=== PATIENT | female | born 1995 | race Two or more races ===

== ENCOUNTER 2019-02-11 01:09 | Inpatient (IN) | payer BC ==
[2019-02-11] MEDS ORDERED: PENICILLIN G-K 5 MILLION UNIT VIAL ONE (02:15)
[2019-02-11] MEDS ORDERED: OXYTOCIN 10 UNIT/ML VIAL ONE ×2 (02:35→02:42)
[2019-02-11] MEDS ORDERED: MISOPROSTOL 0.2 MG TABLET ONE ×2 (02:35→02:42)
[2019-02-11] MEDS ORDERED: LIDOCAINE 1% INJ-PF (10 MG/ML) 30 ML SDV ONE ×2 (02:36→02:42)
[2019-02-11] MEDS ORDERED: OXYTOCIN/NORMAL SALINE 0 UNIT/0 ML RTUINJ ONE (02:36)
[2019-02-11] MEDS ORDERED: RINGERS SOLUTION,LACTATED 1,000 ML IV ONE (02:38)
[2019-02-11] MEDS ORDERED: PENICILLIN G POTASSIUM 5,000,000 UNIT in DEXTROSE 5%-WATER 100 ML IV ONE (02:38)
[2019-02-11] MEDS ORDERED: RINGERS SOLUTION,LACTATED 1,000 ML IV PRN (02:38)
[2019-02-11] MEDS ORDERED: OXYTOCIN/NORMAL SALINE 20 UNIT/1,000 ML RTUINJ ONE ×2 (02:42→06:38)
[2019-02-11 02:56] LABS: ABSOLUTE LYMPHOCYTES (AUTO) 1.6 10^3/uL (0.5-4.7); ABSOLUTE MONOCYTES (AUTO) 0.7 10^3/uL (0.1-1.4); ABSOLUTE NEUT (AUTO) 15.4 10^3/uL (1.7-8.2); BASOPHILS % (AUTO) 0.1 % (0-2); EOSINOPHILS % (AUTO) 0.1 % (0-6); HEMOGLOBIN 12.4 g/dL (12.0-15.5); LYMPHOCYTES % (AUTO) 9.1 % (13-45); MEAN CORPUSCULAR HGB CONC 34.4 g/dL (32.0-36.0); MEAN CORPUSCULAR VOLUME 93 fl (80-97); PLATELET COUNT 185 10^3/uL (150-450); RED BLOOD COUNT 3.87 10^6/uL (3.72-5.28); RED CELL DISTRIBUTION WIDTH 13.1 % (11.5-14.0); SEGMENTED NEUTROPHILS % (AUTO) 86.7 % (42-78); TOTAL CELLS COUNTED % (AUTO) 100 %; WHITE BLOOD COUNT 17.8 10^3/uL (4.0-10.5)
--- NOTE | 2019-02-11 02:57 | Admission Physical ---
Datetime Report Generated by CPN: 02/11/2019 02:57 CURRENT ADMISSION Chief Complaint: Uterine Contractions Indication for Induction: Not Applicable Admit Impression : Term, Intrauterine Admit Plan: Admit to Unit; Initiate Labor Protocol OBSTETRICAL HISTORY EDC: 02/21/2019 00:00 : 4 Para: 1 PHYSICAL EXAM General: Normal HEENT: Normal Neurologic: Normal Thyroid: Normal Heart: Normal Lungs: Normal Breast: Deferred Back: Normal Abdomen: Normal Genitourinary Exam: Normal Extremities: Normal DTRs: Normal Pelvic Type: Adequate FETUS A EGA: 38.4 INFORMED CONSENT Signature: with User ID: [email or web address]
[2019-02-11 02:59] LABS: APPEARANCE,URINE SLIGHTLY-CLOUDY; BILIRUBIN,URINE NEGATIVE (NEGATIVE); COLOR,URINE YELLOW; GLUCOSE, URINE 50 mg/dL (NEGATIVE); KETONES,URINE NEGATIVE (NEGATIVE); LEUKOCYTE ESTERASE,URINE NEGATIVE (NEGATIVE); NITRITE,URINE NEGATIVE (NEGATIVE); PROTEIN,URINE NEGATIVE (NEGATIVE); URINE SPECIFIC GRAVITY 1.019; UROBILINOGEN,URINE NEGATIVE mg/dL (<2.0)
[2019-02-11] MEDS ORDERED: PROMETHAZINE HCL 25 MG TABLET PO PRN (03:01)
[2019-02-11] MEDS ORDERED: DIPHENHYDRAMINE HCL 25 MG CAPSULE PO PRN (03:01)
[2019-02-11] MEDS ORDERED: OXYTOCIN/NORMAL SALINE 20 UNIT/1,000 ML RTUINJ IV PRN (03:01)
[2019-02-11] MEDS ORDERED: BENZOCAINE/MENTHOL AEROSOL SPRAY 56 ML TOP PRN (03:01)
[2019-02-11] MEDS ORDERED: PROMETHAZINE HCL 25 MG SUPP.RECT PR PRN (03:01)
[2019-02-11] MEDS ORDERED: MEASLES,MUMPS&RUBELLA VACC/PF 0.5 ML VIAL SUBCUT PRN (03:01)
[2019-02-11] MEDS ORDERED: DIBUCAINE 1% OINTMENT 56 GM TP PRN (03:01)
[2019-02-11] MEDS ORDERED: ZOLPIDEM TARTRATE 5 MG TABLET PO PRN (03:01)
[2019-02-11] MEDS ORDERED: PSEUDOEPHEDRINE HCL 30 MG TABLET PO PRN (03:01)
[2019-02-11] MEDS ORDERED: PROMETHAZINE HCL INJ 25 MG/1 ML VIAL IV PRN (03:01)
[2019-02-11] MEDS ORDERED: GLYCERIN/WITCH HAZEL LEAF 1 EACH MED..WIPE TP PRN (03:01)
[2019-02-11] MEDS ORDERED: NA PHOS,M-B/NA PHOS,DI-BA (ADULT) 133 ML ENEMA PR PRN (03:01)
[2019-02-11] MEDS ORDERED: MAGNESIUM HYDROXIDE SUSP 30 ML UDCUP PO PRN (03:01)
[2019-02-11] MEDS ORDERED: ACETAMINOPHEN WITH CODEINE #3 TABLET PO PRN (03:01)
[2019-02-11] MEDS ORDERED: ACETAMINOPHEN 650 MG SUPP.RECT PR PRN (03:01)
[2019-02-11] MEDS ORDERED: DIPH/PERTUSS(ACELL)/TETANUS VAC/PF 0.5 ML SYR (>=10YO) IM PRN (03:01)
[2019-02-11 03:13] LABS: URINE AMPHETAMINES SCREEN NEGATIVE; URINE BARBITURATES SCREEN NEGATIVE; URINE BENZODIAZEPINES SCREEN NEGATIVE; URINE COCAINE SCREEN NEGATIVE; URINE MARIJUANA (THC) SCREEN NEGATIVE; URINE METHADONE SCREEN NEGATIVE; URINE PHENCYCLIDINE SCREEN NEGATIVE
[2019-02-11] MEDS ORDERED: MIDAZOLAM 2 MG/2 ML INJ ONE (04:01)
[2019-02-11] MEDS ORDERED: DEXAMETHASONE SOD PHOSPHATE INJ 4 MG/1 ML VIAL ONE (04:01)
[2019-02-11] MEDS ORDERED: PROPOFOL INJ 200 MG/20 ML VIAL IV ONE (04:01)
[2019-02-11] MEDS ORDERED: ONDANSETRON HCL INJ/PF 4 MG/2 ML SDV ONE (04:01)
[2019-02-11] MEDS ORDERED: FENTANYL CITRATE INJ/PF 100 MCG/2 ML AMPUL ONE (04:01)
[2019-02-11] MEDS ORDERED: PENICILLIN G POTASSIUM 2,500,000 UNIT in DEXTROSE 5%-WATER 50 ML IV SCH (06:38)
[2019-02-11] MEDS: IBUPROFEN 800 MG TABLET PO SCH ×4 (09:44→22:27)
[2019-02-11] MEDS: PRENATAL VITAMIN W DHA CAPSULE PO SCH (09:48)
[2019-02-11] MEDS: DOCUSATE SODIUM 100 MG CAPSULE PO SCH ×2 (09:48→17:54)
[2019-02-11] MEDS: FAMOTIDINE 20 MG TABLET PO SCH ×2 (09:48→22:27)
[2019-02-11] MEDS: FERROUS SULFATE 325 MG TABLET PO SCH ×2 (09:48→17:54)
[2019-02-11] MEDS: SENNOSIDES/DOCUSATE 8.6-50 MG 1 EACH TABLET PO SCH (09:48)
--- NOTE | 2019-02-11 11:03 | Delivery Summary ---
Del Sum A-C Datetime Report Generated by CPN: 02/11/2019 11:03 DELIVERY PERSONNEL DELIVERY PERSONNEL: [id number] Delivery Doctor:: Chris Rocha MD Labor and Delivery Nurse:: Mary Galvez, RNC Commanding Officer Traffic Division/CHURCH SUPERVISOR: Umm Ross, ST MATERNAL INFORMATION Delivery Anesthesia: None Medications After Delivery: Pitocin Drip 20 Units/1000ml NSS Estimated Blood Loss (ml): 450 Delivery QBL: 100 Maternal Complications: Precipitous Labor (<3hrs) LABOR SUMMARY EDC: 02/21/2019 00:00 No. Babies in Womb: 1 Attempted: No Labor Anesthesia: None LABOR INFORMATION Reason for Induction: Not Applicable Onset of Labor: 02/10/2019 22:00 Complete Dilatation: 02/11/2019 02:41 Oxytocin: N/A Group B Beta Strep: Positive Antibiotics # of Doses: 1 Antibiotics Time of Last Dose: 0200 Name of Antibiotic Given: penicillin Steroids Given: None Reason Steroids Not Administered: Not Applicable MEMBRANES Membranes Rupture Method: Spontaneous Rupture of Membranes: 02/11/2019 02:41 Length of Rupture (hr): 0.00 Amniotic Fluid Color: Clear Amniotic Fluid Amount: None Amniotic Fluid Odor: Normal STAGES OF LABOR Stage 1 hr: 4 Stage 1 min: 41 Stage 2 hr: 0 Stage 2 min: 0 Stage 3 hr: 1 Stage 3 min: 24 Total Time in Labor hr: 6 Total Time in Labor min: 5 VAGINAL DELIVERY Episiotomy: None Laceration #1: None Laceration Repair: Not Applicable Sponge Count Correct: N/A BABY A INFORMATION Delivery Date/Time: 02/11/2019 02:41 Method of Delivery: Vaginal Born in Route : No : N/A Forceps: N/A Vacuum Extraction: N/A Shoulder Dystocia : No PRESENTATION/POSITION BABY A Presentation: Cephalic Cephalic Presentation: Vertex Vertex Position: Left Occipital Anterior Breech Presentation: N/A PLACENTA INFORMATION BABY A Placenta Delivery Time : 02/11/2019 04:05 Placenta Method of Delivery: Spontaneous Placenta Status: Delivered SCORES BABY A Heart Rate 1 min: >100 bpm Resp Effort 1 min: Good Cry Reflex Irritability 1 min: Cough or Sneeze or Pulls Away Muscle Tone 1 min: Active Motion Color 1 min: Body [place], Extremities Blue Resuscitation Effort 1 min: Tactile Stimulation SCORE 1 MIN: 9 Heart Rate 5 min: >100 bpm Resp Effort 5 min: Good Cry Reflex Irritability 5 min: Cough or Sneeze or Pulls Away Muscle Tone 5 min: Active Motion Color 5 min: Body [place], Extremities Blue SCORE 5 MIN: 9 INFORMATION BABY A Gestational Age at Delivery: 38.4 Gestational Status: Early Term- 37- 38.6 Weeks Infant Outcome : Liveborn Condition : Stable Sex: Female IDENTIFICATION BABY A Infant Verification Date/Time: 02/11/2019 02:50 ID Band Number: [id number] Mother's Name Verified: Yes RN Verifying Infant: Thien Galvez RN WEIGHT/LENGTH BABY A Birthweight (gm): 3280 Infant Weight (lb): 7 Weight (oz): 4 Infant Length (in): 19.00 Infant Length (cm): 48.26 CORD INFORMATION BABY A No. Cord Vessels: 3 Nuchal Cord : N/A Cord Blood Taken: Yes-For Storage (Mom's Blood type +) Suction: None ASSESSMENT BABY A Infant Complications: None Physical Findings at Delivery: Within Normal Limits Respirations: Appears Normal Variety Lathe Operator/ALS Called : No Infant Care By: D Leonor RN Transferred To: [facility] BABY B INFORMATION : N/A SIGNATURES Signature: with User ID: [email or web address]
[2019-02-12] MEDS: IBUPROFEN 800 MG TABLET PO SCH ×3 (06:57→22:58)
[2019-02-12 07:55] LABS: HEMATOCRIT 33.5 % (36.0-47.0); HEMOGLOBIN 11.2 g/dL (12.0-15.5); MEAN CORPUSCULAR HEMOGLOBIN 32.1 pg (27.0-33.4); MEAN CORPUSCULAR HGB CONC 33.6 g/dL (32.0-36.0); MEAN CORPUSCULAR VOLUME 96 fl (80-97); PLATELET COUNT 163 10^3/uL (150-450); RED CELL DISTRIBUTION WIDTH 13.3 % (11.5-14.0); WHITE BLOOD COUNT 15.5 10^3/uL (4.0-10.5)
[2019-02-12] MEDS: FAMOTIDINE 20 MG TABLET PO SCH ×2 (09:55→22:58)
[2019-02-12] MEDS: DOCUSATE SODIUM 100 MG CAPSULE PO SCH ×2 (09:55→18:46)
[2019-02-12] MEDS: SENNOSIDES/DOCUSATE 8.6-50 MG 1 EACH TABLET PO SCH (09:55)
[2019-02-12] MEDS: PRENATAL VITAMIN W DHA CAPSULE PO SCH (09:56)
[2019-02-12] MEDS: FERROUS SULFATE 325 MG TABLET PO SCH ×2 (09:57→18:46)
--- NOTE | 2019-02-12 11:51 | PDOC PROGRESS REPORT ---
Subjective-OB Progress Note for:: 02/12/19 Subjective: Pt doing well, no concerns. She reports light bleeding, reg diet and voiding without difficulty. Unable to connect to K[employer], kidthing translate used for communication. [place]an is limited but she understands some. Physical Exam (OB) Vital Signs: Temp Pulse Resp BP Pulse Ox 98.2 F 72 16 105/58 L 98 02/12/19 07:43 02/12/19 07:43 02/12/19 07:43 02/12/19 07:43 02/12/19 07:43 Intake & Output 02/11/19 02/12/19 02/13/19 06:59 06:59 06:59 Intake Total 500 Balance 500 Weight 72.575 kg - PIH/Pre-Eclampsia Headache: Absent Epigastric Pain: No Visual Changes: No - Lochia Lochia Amount: Small 10-25 ml Lochia Color: Rubra/Red - Abdomen Description: Soft, Round Hernia Present: No Fundal Description: Firm, Midline Fundal Height: u/u - u/2 Objective-Diagnostic Laboratory: 02/12/19 07:37 02/12/19 07:37 WBC 15.5 H RBC 3.50 L Hgb 11.2 L Hct 33.5 L MCV 96 MCH 32.1 MCHC 33.6 RDW 13.3 Plt Count 163 Assessment and Plan(PN) - Assessment and Plan (1) Vaginal delivery Is this a current diagnosis for this admission?: Yes - Time Spent with Patient Time with patient: Less than 15 minutes Medications reviewed and adjusted accordingly: Yes - Disposition Anticipated Discharge: Home Within: within 24 hours
[2019-02-13] MEDS: IBUPROFEN 800 MG TABLET PO SCH (05:57)
[2019-02-13 08:53] VITALS: BP 103/55
[2019-02-13] MEDS: DOCUSATE SODIUM 100 MG CAPSULE PO SCH (11:55)
[2019-02-13] MEDS: PRENATAL VITAMIN W DHA CAPSULE PO SCH (11:55)
[2019-02-13] MEDS: SENNOSIDES/DOCUSATE 8.6-50 MG 1 EACH TABLET PO SCH (11:55)
[2019-02-13] MEDS: FAMOTIDINE 20 MG TABLET PO SCH (11:55)
[2019-02-13] MEDS: FERROUS SULFATE 325 MG TABLET PO SCH (11:55)
--- NOTE | 2019-02-13 12:45 | PDOC DISCHARGE SUMMARY ---
Impression - Admit/DC Date/PCP Admission Date/Primary Care Provider: 02/11/19 02:26 REMY DICKERSON MD Discharge Date: 02/13/19 - Discharge Diagnosis (1) Vaginal delivery Is this a current diagnosis for this admission?: Yes - Additional Information Resuscitation Status: Full Code Discharge Diet: Regular Discharge Activity: Balance Activity w/Rest, Pelvic Rest Referrals: REMY DICKERSON MD [Primary Care Provider] - Prescriptions: Ibuprofen [Motrin 800 mg Tablet] 800 mg PO Q8HP PRN #60 tablet PRN Reason: For Pain Home Medications: Ibuprofen [Motrin 800 mg Tablet] 800 mg PO Q8HP PRN #60 tablet 02/13/19 Results Laboratory Results: WBC 15.5 10^3/uL (4.0-10.5) H 02/12/19 07:37 RBC 3.50 10^6/uL (3.72-5.28) L 02/12/19 07:37 Hgb 11.2 g/dL (12.0-15.5) L 02/12/19 07:37 Hct 33.5 % (36.0-47.0) L 02/12/19 07:37 MCV 96 fl (80-97) 02/12/19 07:37 MCH 32.1 pg (27.0-33.4) 02/12/19 07:37 MCHC 33.6 g/dL (32.0-36.0) 02/12/19 07:37 RDW 13.3 % (11.5-14.0) 02/12/19 07:37 Plt Count 163 10^3/uL (150-450) 02/12/19 07:37 Lymph % (Auto) 9.1 % (13-45) L 02/11/19 02:40 [place] % (Auto) 4.0 % (3-13) 02/11/19 02:40 Eos % (Auto) 0.1 % (0-6) 02/11/19 02:40 Baso % (Auto) 0.1 % (0-2) 02/11/19 02:40 Absolute Neuts (auto) 15.4 10^3/uL (1.7-8.2) H 02/11/19 02:40 Absolute Lymphs (auto) 1.6 10^3/uL (0.5-4.7) 02/11/19 02:40 Absolute Monos (auto) 0.7 10^3/uL (0.1-1.4) 02/11/19 02:40 Absolute Eos (auto) 0.0 10^3/uL (0.0-0.6) 02/11/19 02:40 Absolute Basos (auto) 0.0 10^3/uL (0.0-0.2) 02/11/19 02:40 Seg Neutrophils % 86.7 % (42-78) H 02/11/19 02:40 Urine Color YELLOW 02/11/19 01:50 Urine Appearance SLIGHTLY-CLOUDY 02/11/19 01:50 Urine pH 6.0 (5.0-9.0) 02/11/19 01:50 Ur Specific [place] 1.019 02/11/19 01:50 Urine Protein NEGATIVE mg/dL (NEGATIVE) 02/11/19 01:50 Urine Glucose (UA) 50 mg/dL (NEGATIVE) H 02/11/19 01:50 Urine Ketones NEGATIVE mg/dL (NEGATIVE) 02/11/19 01:50 Urine Blood NEGATIVE (NEGATIVE) 02/11/19 01:50 Urine Nitrite NEGATIVE (NEGATIVE) 02/11/19 01:50 Urine Bilirubin NEGATIVE (NEGATIVE) 02/11/19 01:50 Urine Urobilinogen NEGATIVE mg/dL (<2.0) 02/11/19 01:50 Ur Leukocyte Esterase NEGATIVE (NEGATIVE) 02/11/19 01:50 Urine Ascorbic Acid 20 (NEGATIVE) H 02/11/19 01:50 Urine Opiates Screen NEGATIVE 02/11/19 01:50 Urine Methadone Screen NEGATIVE 02/11/19 01:50 Ur Barbiturates Screen NEGATIVE 02/11/19 01:50 Ur Phencyclidine Scrn NEGATIVE 02/11/19 01:50 Ur Amphetamines Screen NEGATIVE 02/11/19 01:50 U Benzodiazepines Scrn NEGATIVE 02/11/19 01:50 Urine Cocaine Screen NEGATIVE 02/11/19 01:50 U Marijuana (THC) Screen NEGATIVE 02/11/19 01:50 RPR NONREACTIVE (NONREACTIVE) 02/11/19 02:40 Blood Type A POSITIVE 02/11/19 02:40 Antibody Screen NEGATIVE 02/11/19 02:40
== END 2019-02-13 14:50 | disposition home or self-care (01) | DRG 807 ==
LOC: LC 01:09 → LR 02:26 → 2S 07:45
PROVIDERS: ADMIT Obstetrics & Gynecology Gynecology; ATTEND Obstetrics & Gynecology Gynecology
PROC: 10E0XZZ Delivery of Products of Conception, External Approach (ICD-10-PCS; principal; 2019-02-11)
DX: O62.3 Precipitate labor (principal); Z37.0 Single live birth; O99.824 Streptococcus B carrier state complicating childbirth; Z3A.38 38 weeks gestation of pregnancy
CPT/HCPCS: 36415; 80307; 81005; 85025; 85027; 86592; 86850; 86900; 86901; J1100; J2250; J2405; J2540; J2590; J2704; J3010; J3490; J7060

== ENCOUNTER 2020-05-09 00:04 | Inpatient (IN) | payer BC ==
[2020-05-09 00:52] LABS: APPEARANCE,URINE CLEAR; BILIRUBIN,URINE NEGATIVE (NEGATIVE); COLOR,URINE YELLOW; GLUCOSE, URINE NEGATIVE (NEGATIVE); KETONES,URINE TRACE mg/dL (NEGATIVE); LEUKOCYTE ESTERASE,URINE NEGATIVE (NEGATIVE); NITRITE,URINE NEGATIVE (NEGATIVE); PROTEIN,URINE NEGATIVE (NEGATIVE); URINE SPECIFIC GRAVITY 1.018; UROBILINOGEN,URINE NEGATIVE mg/dL (<2.0)
[2020-05-09 01:07] LABS: URINE AMPHETAMINES SCREEN NEGATIVE; URINE BARBITURATES SCREEN NEGATIVE; URINE BENZODIAZEPINES SCREEN NEGATIVE; URINE COCAINE SCREEN NEGATIVE; URINE MARIJUANA (THC) SCREEN NEGATIVE; URINE METHADONE SCREEN NEGATIVE; URINE PHENCYCLIDINE SCREEN NEGATIVE
[2020-05-09] MEDS ORDERED: OXYTOCIN 10 UNIT/ML VIAL ONE (01:29)
--- NOTE | 2020-05-09 01:38 | Admission Physical ---
Datetime Report Generated by CPN: 05/09/2020 01:38 CURRENT ADMISSION Chief Complaint: Uterine Contractions Indication for Induction: Not Applicable Admit Impression : Term, Intrauterine ; Active Labor Admit Plan: Admit to Unit; Initiate Labor Protocol ALLERGIES Medication Allergies: No Medication Allergies: No Known Allergies (05/09/2020) Latex: Latex Allergies Food Allergies: none Environmental Allergies: none OBSTETRICAL HISTORY EDC: 05/31/2020 00:00 : 5 Para: 2 : 0 SAB: 1 IAB: 1 Livin Cesareans: 0 VBACs: 0 Multiple Births: 0 Gestational Diabetes: No Rh Sensitization: No Incompetent Cervix: No THUY: No Infertility: No ART Treatment: No Uterine Anomaly: No IUGR: No Hx Previous C/S: No Macrosomia: No Hx Loss/Stillborn: No PIH: No Hx : No Placenta Previa/Abruption: No Depression/PP Depression: No PTL/PROM: No Post Hemorrhage: No Obstetrical History Comments: G1- 2015- SAB G2- EAB (unknown year) G3- 2016, vaginal (In [place], epidural) G4- 2018, vaginal (natural) G5- Current SEE RECORDS Alcohol: No Marijuana : No Cocaine: No Other Illicit Drugs: No Cigarettes: Never Smoker. [id number] MEDICAL HISTORY Diabetes: No Blood Transfusion: No Pulmonary Disease (Asthma, TB): No Breast Disease: No Hypertension: No Pals Nurse Surgery: No Heart Disease: No Hosp/Surgery: No Autoimmune Disorder: No Anesthetic Complications: No Kidney Disease: No Abnormal Pap Smear: No Neuro/Epilepsy: No Psychiatric Disorders: No Other Medical Diseases: No Hepatitis/Liver Disease: No Significant Family History: No Varicosities/Phlebitis: No Trauma/Violence : No Thyroid Dysfunction: No INFECTIOUS HISTORY Gonorrhea: No Genital Herpes: No Chlamydia: No Tuberculosis: No Syphilis: No Hepatitis: No HIV/AIDS Exposure: No Rash or Viral Illness: No HPV: No PHYSICAL EXAM General: Normal HEENT: Normal Neurologic: Normal Thyroid: Normal Heart: Normal Lungs: Normal Breast: Normal Back: Normal Abdomen: Normal Genitourinary Exam: Normal Extremities: Normal DTRs: Normal Pelvic Type: Adequate Vital Signs: Reviewed FETUS A EGA: 36.6 Monitoring: External US FHR- Baseline: 150 Variability: Moderate 6-25bpm Accelerations: 15X15 FHR Category: Category I Admit Comment: patient was here for labor check. I ws caled with initial exam and plan for patient to walk as she was only 3 cm. within 2 min I was caled again iand informed that patient was delivering. Patient indicates this also happened with her last child. Interpretation done with Nicole. PLANS FOR LABOR AND DELIVERY Labor and Delivery: None Pain Management: None Feeding Preference: Both Benefit of Breast Feed Discussed: Yes Circumcision: No INFORMED CONSENT Signature: with User ID: [email or web address]
[2020-05-09] MEDS ORDERED: MEASLES,MUMPS&RUBELLA VACC/PF 0.5 ML VIAL SUBCUT PRN (01:41)
[2020-05-09] MEDS ORDERED: ACETAMINOPHEN 325 MG TABLET PO PRN (01:41)
[2020-05-09] MEDS ORDERED: GLYCERIN/WITCH HAZEL LEAF 1 EACH MED..WIPE TP PRN (01:41)
[2020-05-09] MEDS ORDERED: ZOLPIDEM TARTRATE 5 MG TABLET PO PRN (01:41)
[2020-05-09] MEDS ORDERED: DIPH/PERTUSS(ACELL)/TETANUS VAC/PF 0.5 ML SYR (>=10YO) IM PRN (01:41)
[2020-05-09] MEDS ORDERED: BENZOCAINE/MENTHOL AEROSOL SPRAY 56 ML TOP PRN (01:41)
[2020-05-09] MEDS ORDERED: VARICELLA VACC/PF (1350 UNIT/0.5 ML) 0.5 ML VIAL SUBCUT PRN (01:41)
[2020-05-09] MEDS ORDERED: MAGNESIUM HYDROXIDE SUSP 30 ML UDCUP PO PRN (01:41)
[2020-05-09] MEDS ORDERED: DIPHENHYDRAMINE HCL 25 MG CAPSULE PO PRN (01:41)
[2020-05-09] MEDS ORDERED: OXYTOCIN/0.9 % SODIUM CHLORIDE 30 UNIT/500 ML RTUINJ IV PRN (01:41)
[2020-05-09] MEDS ORDERED: ACETAMINOPHEN 650 MG SUPP.RECT PR PRN (01:41)
[2020-05-09] MEDS ORDERED: MAG HYDROX/AL HYDROX/SIMETH SUSP 30 ML UDCUP PO PRN (01:41)
[2020-05-09] MEDS ORDERED: ACETAMINOPHEN WITH CODEINE #3 TABLET PO PRN ×2 (01:41)
[2020-05-09] MEDS ORDERED: DIBUCAINE 1% OINTMENT 28 GM TP PRN (01:41)
[2020-05-09] MEDS ORDERED: PSEUDOEPHEDRINE HCL 30 MG TABLET PO PRN (01:41)
[2020-05-09] MEDS ORDERED: FAMOTIDINE 20 MG TABLET PO PRN (01:41)
[2020-05-09 02:48] LABS: ABSOLUTE LYMPHOCYTES (AUTO) 1.1 10^3/uL (0.5-4.7); ABSOLUTE MONOCYTES (AUTO) 0.6 10^3/uL (0.1-1.4); ABSOLUTE NEUT (AUTO) 16.5 10^3/uL (1.7-8.2); BASOPHILS % (AUTO) 0.2 % (0-2); EOSINOPHILS % (AUTO) 0.1 % (0-6); HEMATOCRIT 36.4 % (36.0-47.0); HEMOGLOBIN 12.2 g/dL (12.0-15.5); LYMPHOCYTES % (AUTO) 5.9 % (13-45); MEAN CORPUSCULAR HEMOGLOBIN 29.8 pg (27.0-33.4); MEAN CORPUSCULAR HGB CONC 33.6 g/dL (32.0-36.0); MEAN CORPUSCULAR VOLUME 89 fl (80-97); MONOCYTES % (AUTO) 3.4 % (3-13); PLATELET COUNT 166 10^3/uL (150-450); RED CELL DISTRIBUTION WIDTH 13.2 % (11.5-14.0); SEGMENTED NEUTROPHILS % (AUTO) 90.4 % (42-78); TOTAL CELLS COUNTED % (AUTO) 100 %; WHITE BLOOD COUNT 18.3 10^3/uL (4.0-10.5)
[2020-05-09] MEDS ORDERED: SENNOSIDES/DOCUSATE 8.6-50 MG 1 EACH TABLET ONE (10:03)
[2020-05-09] MEDS ORDERED: DOCUSATE SODIUM 100 MG CAPSULE ONE (10:03)
[2020-05-09] MEDS ORDERED: PRENATAL VITAMIN W DHA CAPSULE PO ONE (10:03)
[2020-05-09] MEDS ORDERED: FERROUS SULFATE 325 MG TABLET PO ONE (10:03)
[2020-05-09] MEDS ORDERED: IBUPROFEN 800 MG TABLET ONE (10:03)
[2020-05-09] MEDS: SENNOSIDES/DOCUSATE 8.6-50 MG 1 EACH TABLET PO SCH (10:08)
[2020-05-09] MEDS: FERROUS SULFATE 325 MG TABLET PO SCH ×2 (10:09→17:44)
[2020-05-09] MEDS: PRENATAL VITAMIN W DHA CAPSULE PO SCH (10:09)
[2020-05-09] MEDS: DOCUSATE SODIUM 100 MG CAPSULE PO SCH ×2 (10:09→17:44)
[2020-05-09] MEDS: IBUPROFEN 800 MG TABLET PO SCH ×3 (13:16→22:35)
[2020-05-09] MEDS ORDERED: INFLUENZA QUAD (6MOS+) 2020-21 VAC 0.5 ML SYR IM ONE (17:30)
[2020-05-10] MEDS: IBUPROFEN 800 MG TABLET PO SCH ×3 (05:09→21:40)
[2020-05-10 07:28] LABS: HEMATOCRIT 34.8 % (36.0-47.0); HEMOGLOBIN 11.8 g/dL (12.0-15.5); MEAN CORPUSCULAR HEMOGLOBIN 30.3 pg (27.0-33.4); MEAN CORPUSCULAR HGB CONC 33.9 g/dL (32.0-36.0); MEAN CORPUSCULAR VOLUME 89 fl (80-97); PLATELET COUNT 165 10^3/uL (150-450); RED BLOOD COUNT 3.89 10^6/uL (3.72-5.28); RED CELL DISTRIBUTION WIDTH 13.6 % (11.5-14.0); WHITE BLOOD COUNT 15.1 10^3/uL (4.0-10.5)
[2020-05-10] MEDS: DOCUSATE SODIUM 100 MG CAPSULE PO SCH ×2 (10:23→17:41)
[2020-05-10] MEDS: FERROUS SULFATE 325 MG TABLET PO SCH ×2 (10:23→17:41)
[2020-05-10] MEDS: PRENATAL VITAMIN W DHA CAPSULE PO SCH (10:24)
[2020-05-10] MEDS: SENNOSIDES/DOCUSATE 8.6-50 MG 1 EACH TABLET PO SCH (10:24)
--- NOTE | 2020-05-10 11:46 | PDOC PROGRESS REPORT ---
Subjective-OB Progress Note for:: 05/10/20 Subjective: reports bleeding slowing, pain controlled with current meds. denies needs Physical Exam (OB) Vital Signs: Temp Pulse Resp BP Pulse Ox 98.4 F 69 18 92/52 L 99 05/10/20 07:56 05/10/20 07:51 05/10/20 07:51 05/10/20 07:51 05/10/20 07:51 Intake & Output 05/09/20 05/10/20 05/11/20 06:59 06:59 06:59 Intake Total 300 Balance 300 Weight 78.6 kg - Maternal Morbidity 59. Maternal Morbidity (serious complications experinced by the mother associated with labor and delivery: None of the above - Abdomen Description: Soft Hernia Present: No Fundal Description: Firm, Midline Fundal Height: 1/u - 2/u - Abdominal Distension: No distension Tenderness: Nontender - Extremities Calf: Normal, Nontender Objective-Diagnostic Laboratory: 05/10/20 07:02 05/10/20 07:02 WBC 15.1 H RBC 3.89 Hgb 11.8 L Hct 34.8 L MCV 89 MCH 30.3 MCHC 33.9 RDW 13.6 Plt Count 165 Assessment and Plan(PN) - Time Spent with Patient Time with patient: Less than 15 minutes Medications reviewed and adjusted accordingly: Yes - Disposition Anticipated Discharge Disposition: Home, Self Care Anticipated Discharge Timeframe: within 24 hours
[2020-05-11] MEDS: IBUPROFEN 800 MG TABLET PO SCH (06:09)
[2020-05-11 08:09] VITALS: BP 110/63
--- NOTE | 2020-05-11 10:09 | PDOC DISCHARGE SUMMARY ---
Impression - Admit/DC Date/PCP Admission Date/Primary Care Provider: 05/09/20 01:31 ISAIAH HAMILTON MD Discharge Date: 05/11/20 - PP Day #2, doing well, denies issues via phone translation. A+. Rubella immune, bottlefeeding - Additional Information Resuscitation Status: Full Code Discharge Diet: Regular Discharge Activity: Activity As Tolerated, Balance Activity w/Rest, No Lifting Over 10 Pounds, Pelvic Rest Referrals: REMY DICKERSON MD [ACTIVE STAFF] - Prescriptions: Ibuprofen [Motrin 800 mg Tablet] 800 mg PO Q8 #60 tablet Home Medications: Vitamin [-U Multiple Vitamin Capsule] 1 tab PO DAILY 05/09/20 Ibuprofen [Motrin 800 mg Tablet] 800 mg PO Q8 #60 tablet 05/11/20 HPI Reason(s) for Admission: Onset of Labor Procedures: Ultrasound Intrapartum Procedure(s): Spontaneous Vaginal Delivery Hospital Course 59. Maternal Morbidity (serious complications experinced by the mother associated with labor and delivery: None of the above Results Laboratory Results: WBC 15.1 10^3/uL (4.0-10.5) H 05/10/20 07:02 RBC 3.89 10^6/uL (3.72-5.28) 05/10/20 07:02 Hgb 11.8 g/dL (12.0-15.5) L 05/10/20 07:02 Hct 34.8 % (36.0-47.0) L 05/10/20 07:02 MCV 89 fl (80-97) 05/10/20 07:02 MCH 30.3 pg (27.0-33.4) 05/10/20 07:02 MCHC 33.9 g/dL (32.0-36.0) 05/10/20 07:02 RDW 13.6 % (11.5-14.0) 05/10/20 07:02 Plt Count 165 10^3/uL (150-450) 05/10/20 07:02 Lymph % (Auto) 5.9 % (13-45) L 05/09/20 02:33 [place] % (Auto) 3.4 % (3-13) 05/09/20 02:33 Eos % (Auto) 0.1 % (0-6) 05/09/20 02:33 Baso % (Auto) 0.2 % (0-2) 05/09/20 02:33 Absolute Neuts (auto) 16.5 10^3/uL (1.7-8.2) H 05/09/20 02:33 Absolute Lymphs (auto) 1.1 10^3/uL (0.5-4.7) 05/09/20 02:33 Absolute Monos (auto) 0.6 10^3/uL (0.1-1.4) 05/09/20 02:33 Absolute Eos (auto) 0.0 10^3/uL (0.0-0.6) 05/09/20 02:33 Absolute Basos (auto) 0.0 10^3/uL (0.0-0.2) 05/09/20 02:33 Seg Neutrophils % 90.4 % (42-78) H 05/09/20 02:33 Urine Color YELLOW 05/09/20 00:17 Urine Appearance CLEAR 05/09/20 00:17 Urine pH 6.0 (5.0-9.0) 05/09/20 00:17 Ur Specific [place] 1.018 05/09/20 00:17 Urine Protein NEGATIVE mg/dL (NEGATIVE) 05/09/20 00:17 Urine Glucose (UA) NEGATIVE mg/dL (NEGATIVE) 05/09/20 00:17 Urine Ketones TRACE mg/dL (NEGATIVE) H 05/09/20 00:17 Urine Blood NEGATIVE (NEGATIVE) 05/09/20 00:17 Urine Nitrite NEGATIVE (NEGATIVE) 05/09/20 00:17 Urine Bilirubin NEGATIVE (NEGATIVE) 05/09/20 00:17 Urine Urobilinogen NEGATIVE mg/dL (<2.0) 05/09/20 00:17 Ur Leukocyte Esterase NEGATIVE (NEGATIVE) 05/09/20 00:17 Urine Ascorbic Acid NEGATIVE (NEGATIVE) 05/09/20 00:17 Urine Opiates Screen NEGATIVE 05/09/20 00:17 Urine Methadone Screen NEGATIVE 05/09/20 00:17 Ur Barbiturates Screen NEGATIVE 05/09/20 00:17 Ur Phencyclidine Scrn NEGATIVE 05/09/20 00:17 Ur Amphetamines Screen NEGATIVE 05/09/20 00:17 U Benzodiazepines Scrn NEGATIVE 05/09/20 00:17 Urine Cocaine Screen NEGATIVE 01/13/21 00:17 U Marijuana (THC) Screen NEGATIVE 05/09/20 00:17 RPR NONREACTIVE (NONREACTIVE) 05/09/20 02:33 Chlamydia DNA (PCR) Cancelled 05/09/20 00:17 N.gonorrhoeae DNA (PCR) Cancelled 05/09/20 00:17 Blood Type A POSITIVE 05/09/20 02:33 Antibody Screen NEGATIVE 05/09/20 02:33 Plan Plan of Treatment: d/c home, f/up with [facility] in 4 wks for PP check Time Spent: Less than 30 Minutes
[2020-05-11] MEDS: PRENATAL VITAMIN W DHA CAPSULE PO SCH (10:35)
[2020-05-11] MEDS: DOCUSATE SODIUM 100 MG CAPSULE PO SCH (10:35)
[2020-05-11] MEDS: SENNOSIDES/DOCUSATE 8.6-50 MG 1 EACH TABLET PO SCH (10:36)
[2020-05-11] MEDS: FERROUS SULFATE 325 MG TABLET PO SCH (10:36)
--- NOTE | 2020-05-15 06:55 | Delivery Summary ---
Del Sum A-C Datetime Report Generated by CPN: 05/15/2020 06:55 DELIVERY PERSONNEL DELIVERY PERSONNEL: [id number] Delivery Doctor:: Ciarra Dueñas MD Labor and Delivery Nurse:: Stefanie Amos RNau pair Nurse:: FLORES [place]el Shaver/OUTBOUND SALES AGENT: Ole Castillo, TAX MANAGER MATERNAL INFORMATION Delivery Anesthesia: None Medications After Delivery: Pitocin 10 Units IM Estimated Blood Loss (ml): 200 Delivery QBL: 200 Maternal Complications: Precipitous Labor (<3hrs) Provider Comments: please see H_P for precipitous delivery details LABOR SUMMARY EDC: 05/31/2020 00:00 Attempted: No Labor Anesthesia: None LABOR INFORMATION Reason for Induction: Not Applicable Onset of Labor: 05/09/2020 00:09 Complete Dilatation: 05/09/2020 01:24 Oxytocin: N/A Group B Beta Strep: Unknown Antibiotics # of Doses: 0 Name of Antibiotic Given: n/a Steroids Given: None Reason Steroids Not Administered: Not Applicable MEMBRANES Membranes Rupture Method: Spontaneous Rupture of Membranes: 05/09/2020 01:21 Length of Rupture (hr): 0.05 Amniotic Fluid Color: Clear Amniotic Fluid Amount: Small Amniotic Fluid Odor: None STAGES OF LABOR Stage 1 hr: 1 Stage 1 min: 15 Stage 2 hr: 0 Stage 2 min: 0 Stage 3 hr: 0 Stage 3 min: 5 Total Time in Labor hr: 1 Total Time in Labor min: 20 VAGINAL DELIVERY Episiotomy: None Laceration #1: None Laceration Extension #1: N/A Laceration Repair: Not Applicable Sponge Count Correct: N/A Sharps Count Correct: N/A CSECTION DELIVERY Primary Indication: N/A Secondary Indication: N/A CSection Incidence: N/A Labor: N/A Elective: N/A CSection Incision: N/A BABY A INFORMATION Infant Delivery Date/Time: 05/09/2020 01:24 Method of Delivery: Vaginal Nurse Controlled Delivery: Yes Born in Route : No : N/A Forceps: N/A Vacuum Extraction: N/A Shoulder Dystocia : No PRESENTATION/POSITION BABY A Presentation: Cephalic Cephalic Presentation: Vertex Vertex Position: Left Occipital Anterior Breech Presentation: N/A PLACENTA INFORMATION BABY A Placenta Delivery Time : 05/09/2020 01:29 Placenta Method of Delivery: Spontaneous Placenta Status: Delivered SCORES BABY A Heart Rate 1 min: >100 bpm Resp Effort 1 min: Good Cry Reflex Irritability 1 min: Cough or Sneeze or Pulls Away Muscle Tone 1 min: Active Motion Color 1 min: Body [address], Extremities Blue Resuscitation Effort 1 min: Tactile Stimulation SCORE 1 MIN: 9 Heart Rate 5 min: >100 bpm Resp Effort 5 min: Good Cry Reflex Irritability 5 min: Cough or Sneeze or Pulls Away Muscle Tone 5 min: Active Motion Color 5 min: Body [address], Extremities Blue Resuscitation Effort 5 min: Tactile Stimulation SCORE 5 MIN: 9 INFORMATION BABY A Gestational Age at Delivery: 36.6 Gestational Status: Late - 34- 36.6 Weeks Outcome : Liveborn Condition : Stable Infant Sex: Male IDENTIFICATION BABY A Verification Date/Time: 05/09/2020 01:42 ID Band Number: [id number] Mother's Name Verified: Yes Infant RN Verifying Infant: D Jaclynavance RN/E Jilek RN WEIGHT/LENGTH BABY A Infant Birthweight (gm): 2960 Infant Weight (lb): 6 Weight (oz): 8 Infant Length (in): 18.00 Infant Length (cm): 45.72 CORD INFORMATION BABY A No. Cord Vessels: 3 Nuchal Cord : Around Neck x1, Tight Cord Blood Taken: Yes-For Storage (Mom's Blood type +) Infant Suction: Mouth; Nose ASSESSMENT BABY A Complications: None Physical Findings at Delivery: Within Normal Limits Infant Respirations: Appears Normal Skin to Skin: No Option Trader/ALS Called : No Infant Care By: D Bellavance RN Transferred To: Remains with Mother BABY B INFORMATION : N/A SIGNATURES Signature: with User ID: [email or web address]
== END 2020-05-11 13:30 | disposition home or self-care (01) | DRG 805 ==
LOC: LC 00:04 → LR 01:31 → 2S 16:25
PROVIDERS: ADMIT Obstetrics & Gynecology; ATTEND Obstetrics & Gynecology
PROC: 10E0XZZ Delivery of Products of Conception, External Approach (ICD-10-PCS; principal; 2020-05-09)
PROC: 3E02340 Introduction of Influenza Vaccine into Muscle, Percutaneous Approach (ICD-10-PCS; 2020-05-11)
DX: O62.3 Precipitate labor (principal); O60.14X0 Preterm labor third trimester with preterm delivery third trimester, not applicable or unspecified; Z37.0 Single live birth; O69.1XX0 Labor and delivery complicated by cord around neck, with compression, not applicable or unspecified; Z3A.36 36 weeks gestation of pregnancy; Z23 Encounter for immunization
CPT/HCPCS: 36415; 80307; 81005; 85025; 85027; 86592; 86850; 86900; 86901; 90471; 90686; G0008; J2590; J3490